=== PATIENT | male | born 1965 | race Caucasian/White ===

== ENCOUNTER 2016-11-07 06:51 | Emergency (ER) | payer SELFPAY ==
[~2016-11-07] VITALS: Ht 190.5 cm; Wt 72.8 kg
[~2016-11-07 06:51] MED LIST: HYDR-3533 PO
[2016-11-07 06:57] VITALS: BP 116/70; PULSE 64; RESP 16; TEMP 97.6; O2SAT 93
[2016-11-07] MEDS ORDERED: HYDR-3533 PO ×2 (07:10→09:30)
[2016-11-07] MEDS ORDERED: ACETAMINOPHEN/HYDROcodone 325 MG/5 MG TAB PO ONE (07:45)
--- NOTE | 2016-11-07 07:47 | PD ---
HPI Chief Complaint: Injury Time Seen by Provider: 07:43 Travel History International Travel<30 days: No Contact w/Intl Traveler<30days: No Traveled to known affect area: No History of Present Illness HPI 50-year-old male without significant past medical issues, presents to the ER today for right lateral upper rib pain that started 4 days ago after he had fallen on a step ladder against the shower door and hit that area. He states the pain has been getting worse and it hurts to take a deep breath or move. He denies any other issues or injuries. He states that the pain is currently a 10 out of 10. Modifying Factors: None Associated Signs & Symptoms: Right lateral rib pain, injury Risk Factors: None PFSH Past Medical History Medical History: Denies Significant Hx Hx Anticoagulant Therapy: No Diabetes: No Diminished Hearing: No Influenza Vaccination: No Past Surgical History Abdominal Surgery: Yes (HERNIA REPAIRS) Social History Alcohol Use: Yes ("OCCASIONALLY") Tobacco Use: Yes (1 PPD) Substance Use: Yes (MARIJUANA OCCAS) Allergies-Medications (Allergen,Severity, Reaction): Coded Allergies: No Known Allergies (Verified , 11/07/16) Reported Meds & Prescriptions Reported Meds & Active Scripts Active Reported Lortab (Hydrocodone-Acetaminophen) 5-325 Mg Tab 1 Tab PO Q6H PRN Review of Systems Except as stated in HPI: all other systems reviewed are Neg Physical Exam Narrative GENERAL: Well-nourished, well-developed middle age white male patient in no acute distress. SKIN: Warm and dry. HEAD: Normocephalic. EYES: No scleral icterus. No injection or drainage. NECK: Supple, trachea midline. CARDIOVASCULAR: Regular rate and rhythm without murmurs, gallops, or rubs. CHEST: Right lateral anterolateral/axillary area tenderness without deformity or crepitance. No retractions or use of accessory muscles. RESPIRATORY: Breath sounds equal bilaterally. No accessory muscle use. GASTROINTESTINAL: Abdomen soft, non-tender, nondistended. MUSCULOSKELETAL: No cyanosis, or edema. BACK: Nontender without obvious deformity. No CVA tenderness. Data Data Last Documented VS Vital Signs Date Time Temp Pulse Resp B/P Pulse Ox O2 Delivery O2 Flow Rate FiO2 11/07/16 07:06 96 Room Air 11/07/16 06:57 97.6 64 16 116/70 Orders Ribs, Uni (W/Exp Cxr-Min 3vw) (11/07/16 ) Acetamin-Hydrocod 325-5 Mg ([place] 5-325 (11/07/16 07:45) MDM Medical Decision Making Medical Screen Exam Complete: Yes Emergency Medical Condition: Yes Medical Record Reviewed: Yes Differential Diagnosis Right rib painscontusion versus rib fractures versus pulmonary injuries Narrative Course On my evaluation of the x-ray, I did not see any signs of acute fractures or dislocations. Patient was given pain medications in the ER and on reevaluation at 9:20 AM is feeling improved. At this point, my plan would be to release the patient with follow-up to primary care physician. Return for any worsening in symptoms as needed. The plan has been discussed with him and he states understanding. Diagnosis Primary Impression: Contusion of rib on right side Med/Other Pt SpecificInfo: Prescription(s) given Scripts Hydrocodone-Acetaminophen (Lortab)5-325 Mg Tab1-2 Tab PO Q6H PRN (PAIN) #12 TAB Ref 0 Prov:Lakeisha New MD 11/07/16 Ibuprofen (Motrin Ib)200 Mg [id number] Mg PO Q6H PRN (PAIN SCALE 1 TO 10) #21 TAB Ref 0 Prov:Lakeisha New MD 11/07/16 Disposition: 01 DISCHARGE HOME Condition: Stable Lakeisha New MD Nov 07, 2016 07:47
[2016-11-07] MEDS ORDERED: MOTR200T4 PO (09:30)
--- NOTE | 2016-11-07 09:50 | RADHPO ---
EXAM DATE/TIME: 11/07/2016 07:46 [facility] COMPARISON: No previous studies available for comparison. INDICATIONS : Right anterior rib pain post fall. MEDICAL HISTORY : None. SURGICAL HISTORY : None. ENCOUNTER: Initial ACUITY: 4 - 6 days PAIN SCORE: 10/10 LOCATION: Right anterior ribs FINDINGS: Multiple views of the right ribs were performed. There is no evidence of displaced fracture. No nicci tructive lesions or areas of periosteal thickening are seen. Expiratory view of the chest is negativ e for pneumothorax. The mediastinal structures are midline. CONCLUSION: No acute disease. Zana Jones MD on November 07, 2016 at 9:48 Board Certified Radiologist. This report was verified electronically.
== END 2016-11-07 09:37 | disposition home or self-care (01) ==
LOC: PHED 06:51
DX: S20.211A Contusion of right front wall of thorax, initial encounter (principal); F17.210 Nicotine dependence, cigarettes, uncomplicated; W11.XXXA Fall on and from ladder, initial encounter; Y92.002 Bathroom of unspecified non-institutional (private) residence as the place of occurrence of the external cause; Y99.8 Other external cause status
CPT/HCPCS: 71101; 99283

== ENCOUNTER 2017-02-19 06:07 | Emergency (ER) | payer SELFPAY ==
[~2017-02-19] VITALS: Ht 188 cm; Wt 77.0 kg
[~2017-02-19 06:07] MED LIST changes: +MOTR200T4 PO
[2017-02-19 06:12] VITALS: BP 131/92; PULSE 74; RESP 16; TEMP 97.5; O2SAT 98
[2017-02-19] MEDS ORDERED: predniSONE 20 MG TAB PO ONE (06:45)
[2017-02-19] MEDS ORDERED: PRED50 PO (06:46)
--- NOTE | 2017-02-19 06:46 | PD ---
HPI Chief Complaint: Pain: Acute or Chronic Time Seen by Provider: 06:37 Travel History International Travel<30 days: No Contact w/Intl Traveler<30days: No Traveled to known affect area: No History of Present Illness HPI The patient is a 51-year-old right-hand dominant male that complains of left shoulder pain for one week. He denies any previous trauma. 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 He denies any fever. He denies any other joint pain. He denies any penile discharge. The patient does not want any narcotics. He is not diabetic. He states she has tried Motrin without any relief. PFSH Past Medical History Hx Anticoagulant Therapy: No Diabetes: No Diminished Hearing: No Tetanus Vaccination: > 5 Years Influenza Vaccination: No Past Surgical History Abdominal Surgery: Yes (HERNIA REPAIRS) Social History Alcohol Use: Yes ("OCCASIONALLY") Tobacco Use: Yes (1 PPD) Substance Use: Yes (MARIJUANA OCCAS) Allergies-Medications (Allergen,Severity, Reaction): Coded Allergies: No Known Allergies (Verified , 02/19/17) Reported Meds & Prescriptions Reported Meds & Active Scripts Active No Active Prescriptions or Reported Medications Review of Systems Except as stated in HPI: all other systems reviewed are Neg Physical Exam Narrative GENERAL: Well-nourished, well-developed patient in moderate apparent distress with his left shoulder pain. His vital signs show blood pressure 131/92 and temperature 97.5 but otherwise normal. SKIN: Focused skin assessment warm/dry. No erythema is noted over the shoulder. HEAD: Normocephalic. EYES: No scleral icterus. No injection or drainage. NECK: Supple, trachea midline. No JVD or lymphadenopathy. CARDIOVASCULAR: Regular rate and rhythm without murmurs, gallops, or rubs. RESPIRATORY: Breath sounds equal bilaterally. No accessory muscle use. GASTROINTESTINAL: Abdomen soft, non-tender, nondistended. MUSCULOSKELETAL: No cyanosis, or edema. There is tenderness around the scapula around the subscapular bursa. There is also tenderness in the joint as palpated through the axilla. BACK: Nontender without obvious deformity. No CVA tenderness. Data Data Last Documented VS Vital Signs Date Time Temp Pulse Resp B/P Pulse Ox O2 Delivery O2 Flow Rate FiO2 02/19/17 06:12 97.5 74 16 131/92 98 MDM Medical Decision Making Medical Screen Exam Complete: Yes Emergency Medical Condition: Yes Medical Record Reviewed: Yes Differential Diagnosis Subscapular bursitis, arthrosis, septic jointhighly likely Narrative Course The patient likely has subscapular bursitis. He may have some arthrosis as well. Most of the tenderness however is in the subscapular bursa. Plan: The patient will be given prednisone on a tapered course and a sling. Diagnosis Primary Impression: Subscapular bursitis Additional Instructions: As we discussed, if rest and prednisone does not work he will need to see an orthopedic physician. He can inject this subscapular bursa using a long needle. Med/Other Pt SpecificInfo: Prescription(s) given Scripts Prednisone 50 Mg Tab50 Mg PO BID #12 TAB Ref 0 Prov:Sea Anderson MD 02/19/17 Disposition: 01 DISCHARGE HOME Condition: Stable Sea Anderson MD February 19, 2017 06:46
== END 2017-02-19 06:49 | disposition home or self-care (01) ==
LOC: PHED 06:07
DX: M75.52 Bursitis of left shoulder (principal); F17.210 Nicotine dependence, cigarettes, uncomplicated
CPT/HCPCS: 99283; J7512

== ENCOUNTER 2017-02-28 07:13 | Emergency (ER) | payer SELFPAY ==
[~2017-02-28] VITALS: Ht 190.5 cm; Wt 74.0 kg
[~2017-02-28 07:13] MED LIST changes: -HYDR-3533 PO; -MOTR200T4 PO; +PRED50 PO
[2017-02-28 07:14] VITALS: BP 152/91; PULSE 82; RESP 17; TEMP 97.6; O2SAT 98
[2017-02-28] MEDS ORDERED: IBUP800T23 PO (07:21)
[2017-02-28] MEDS ORDERED: DEXAMETHASONE SOD PHOS 4 MG/ML VIAL IM ONE (07:45)
[2017-02-28] MEDS ORDERED: IBUP400T20 PO (07:48)
[2017-02-28] MEDS ORDERED: OMEP20TA PO (07:48)
--- NOTE | 2017-02-28 07:49 | PD ---
HPI Chief Complaint: Injury Time Seen by Provider: 07:34 Travel History International Travel<30 days: No Contact w/Intl Traveler<30days: No Traveled to known affect area: No History of Present Illness HPI 51 yo M c/o L shoulder pain, worse with ROM past 90 degrees and with some palpation along the anterior margin of the glenohumeral articulation. Onset gradual. 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 No traumatic injury specifically. No paresthesias/weakness. No CP/SOB. No fever or rash. No similar prior. Pt seen here and was given prednisone by prior provider with diagnosis of subcapsular bursitis. This AM pt took approx 1200mg motrin with marginal benefit. he was unable to sleep last night 2/2 pain. ice helped marginally. immobilization with sling doesn't seem to help. PFSH Past Medical History Medical History: Denies Significant Hx Hx Anticoagulant Therapy: No Diabetes: No Diminished Hearing: No Influenza Vaccination: No ?: Not Past Surgical History Abdominal Surgery: Yes (HERNIA REPAIRS) Social History Alcohol Use: Yes ("OCCASIONALLY") Tobacco Use: Yes (1 PPD) Substance Use: Yes (MARIJUANA OCCAS) Allergies-Medications (Allergen,Severity, Reaction): Coded Allergies: No Known Allergies (Verified , 02/28/17) Reported Meds & Prescriptions Reported Meds & Active Scripts Active Prednisone 50 Mg Tab 50 Mg PO BID Reported Ibuprofen 800 Mg Tab 1,200 Mg PO ONCE Review of Systems General / Constitutional: No: Fever Cardiovascular: No: Chest Pain or Discomfort, Tachycardia, Diaphoresis Musculoskeletal: Positive: Pain, No: Weakness, Edema Physical Exam Narrative GENERAL: 51 yo M, WNWD, moderate distress SKIN: Warm and dry. RESPIRATORY: No accessory muscle use. Clear to auscultation. Breath sounds equal bilaterally. GASTROINTESTINAL: Abdomen soft, non-tender, nondistended. Hepatic and splenic margins not palpable. MUSCULOSKELETAL: Extremities without clubbing, cyanosis, or edema. No obvious deformities. Minimal TTP anterior glenohumeral articulation. Abduction to 90 tolerated. > 90 degrees is painful, passive and active. 2+ radial artery pulse bilaterally. NEUROLOGICAL: Awake and alert. No obvious cranial nerve deficits. Motor grossly within normal limits. Five out of 5 muscle strength in the arms and legs. Normal speech. Data Data Last Documented VS Vital Signs Date Time Temp Pulse Resp B/P Pulse Ox O2 Delivery O2 Flow Rate FiO2 02/28/17 07:14 97.6 82 17 152/91 98 VS reviewed Orders Dexamethasone Inj (Decadron Inj) (02/28/17 07:45) MDM Medical Decision Making Medical Screen Exam Complete: Yes Emergency Medical Condition: Yes Medical Record Reviewed: Yes Differential Diagnosis bursitis, septic arthritis, fracture, tendinopathy, rotator cuff tear, biceps tendon injury Narrative Course Treatment options discussed. Necessity of rest discussed. Mandatory outpatient referral discussed. Ibuprofen dosing discussed, aggressive oral hydration. Diagnosis Primary Impression: Left shoulder pain Qualified Code: M25.512 - Left shoulder pain, unspecified chronicity Referrals: Chacorta Sheehan MD call for appointment Additional Instructions: You have a choice when it comes to health care, and we are glad that you chose [facility]. Hopefully, we have met your expectations on today's visit. You are welcome to return to [facility] at any time, as we are committed to meeting the health care needs of our community. Med/Other Pt SpecificInfo: Prescription(s) given Scripts Ibuprofen 400 Mg [id number] Mg PO Q8H 7 Days Ref 0 Prov:Dao Courtney MD 02/28/17 Omeprazole 20 Mg Tab20 Mg PO DAILY #14 TAB Ref 0 Prov:Dao Courtney MD 02/28/17 Disposition: 01 DISCHARGE HOME Condition: Stable Dao Courtney MD Feb 28, 2017 07:48
== END 2017-02-28 07:59 | disposition home or self-care (01) ==
LOC: PHED 07:13
DX: M25.512 Pain in left shoulder (principal); F17.210 Nicotine dependence, cigarettes, uncomplicated
CPT/HCPCS: 96372; 99284; J1100